=== PATIENT | female | born 1975 | race Caucasian/White ===

== ENCOUNTER 2018-02-25 01:17 | Outpatient (CLI) | payer OTHER, SELFPAY ==
--- NOTE | 2018-02-25 09:15 | DI.REPORT_ITS ---
SYMPTOM/DIAGNOSIS: SCREENING, Z12.31 BILATERAL SCREENING MAMMOGRAM: Mammograms were interpreted according to the usual protocol including computer analysis with CAD system, tomosynthesis and C view imaging. This is a baseline examination. The breasts are composed of heterogeneously dense fibroglandular tissue, breast density Category C. No suspicious masses or suspicious microcalcifications are seen. IMPRESSION: Category 1-C, negative mammogram. Yearly screening mammography is recommended. [facility] ASSESSMENT OF FINDINGS: Negative. Category 1. Patient will receive a letter notifying them of these results. Bi-RADS category C. The breasts are heterogeneously dense, which may obscure small masses.
== END 2018-02-25 01:18 ==
PROVIDERS: PCP Nurse Practitioner Family; Visit Provider Obstetrics & Gynecology
DX: Z12.31 Encounter for screening mammogram for malignant neoplasm of breast (principal)
CPT/HCPCS: 77063; 77067

== ENCOUNTER 2018-02-25 08:15 | Outpatient (CLI) | payer OTHER, SELFPAY ==
[2018-02-25 09:55] LABS: Anion Gap 11.9 mmol/L (3-11); BUN 13 mg/dL (7-18); CO2 28.1 mmol/L (21.0-32.0); CREATININE 0.85 mg/dL (0.55-1.02); Calcium 8.6 mg/dL (8.5-10.1); Chloride 100 mmol/L (98-107); Cholesterol 229 mg/dL (50-200); Glucose 95 mg/dL (70-100); HDL Cholesterol 57 mg/dL (40-60); LDL CHOLESTEROL 140 mg/dL (<100); Potassium 3.8 mmol/L (3.5-5.1); Sodium 140 mmol/L (136-145); Triglyceride 172 mg/dL (30-150)
== END 2018-02-25 08:16 ==
PROVIDERS: PCP Nurse Practitioner Family; Visit Provider Nurse Practitioner Family
DX: E78.5 Hyperlipidemia, unspecified (principal); I10 Essential (primary) hypertension; Z13.1 Encounter for screening for diabetes mellitus
CPT/HCPCS: 36415; 80048; 80061; 83721

== ENCOUNTER 2019-02-14 15:18 | Outpatient (REF) | payer OTHER, SELFPAY ==
--- NOTE | 2019-02-14 14:40 | PAPFT_PTH ---
PATIENT: Anabelle Hughes LOC: [facility] U#:[id number] AGE/SX: 43/F ROOM: RE02/14/[address]: Mei White MD : [id number] BED: DIS: 02/14/2019 SPEC #: [id number] RECD: 02/14/19 17:36 STATUS: JANES RESantosh #: [id number] ROXANNA: 02/14/19 14:[address]: Mei White DEPT: [facility] Cytology RECD BY: Sharlene Boggs ENTERED: 02/14/19 17:36 SP TYPE: PAPFT OTHR DR: Estelle Stovall APRN Tissues: 1 - CX/ENDOCX FOR PAP SMEARS Procedures: PAP THIN PREP/[facility] Screening HPV DNA PROBE Comments: [id number]
== END 2019-02-14 15:38 ==
LOC: LBN 15:18
PROVIDERS: PCP Nurse Practitioner Family; Visit Provider Obstetrics & Gynecology
DX: Z12.4 Encounter for screening for malignant neoplasm of cervix (principal); Z11.51 Encounter for screening for human papillomavirus (HPV)
CPT/HCPCS: 88142; 87624

== ENCOUNTER 2019-03-24 07:02 | Outpatient (CLI) | payer OTHER, SELFPAY ==
[2019-03-24 08:09] LABS: Anion Gap 8.3 mmol/L (3-11); BUN 12 mg/dL (7-18); CO2 28.7 mmol/L (21.0-32.0); CREATININE 0.78 mg/dL (0.55-1.02); Calculated LDL 98 mg/dL; Chloride 101 mmol/L (98-107); Cholesterol 186 mg/dL (50-200); Glucose 96 mg/dL (70-100); HDL Cholesterol 54 mg/dL (40-60); Potassium 3.7 mmol/L (3.5-5.1); Sodium 138 mmol/L (136-145); Triglyceride 171 mg/dL (30-150)
== END 2019-03-24 07:22 ==
PROVIDERS: PCP Nurse Practitioner Family; Visit Provider Nurse Practitioner Family
DX: I10 Essential (primary) hypertension (principal); E78.5 Hyperlipidemia, unspecified
CPT/HCPCS: 36415; 80048; 80061

== ENCOUNTER 2019-09-01 15:30 | Outpatient (CLI) | payer OTHER, SELFPAY ==
[2019-09-01 16:04] LABS: HCT 37.5 % (36.0-46.0); HGB 12.9 g/dL (12.0-15.5); Mean Corp. HGB Concentration 34.4 g/dL (32.0-36.0); Mean Corpuscular Hemoglobin 33.7 pg (27.0-33.0); Mean Corpuscular Volume 97.9 fL (80-95); Mean Platelet Volume 8.9 fL (8.0-11.0); Platelet Count 372 x1000/uL (130-400); RBC 3.83 m/cumm (4.00-5.20); RBC Distribution Width 11.7 % (11.7-14.6)
[2019-09-01 16:53] LABS: ALT 26 U/L (14-59); AST 20 U/L (15-37); Alkaline Phosphatase 64 U/L (46-116); Anion Gap 10.2 mmol/L (3-11); BUN 16 mg/dL (7-18); Bilirubin, Total 0.4 mg/dL (0.2-1.0); CO2 28.8 mmol/L (21.0-32.0); CREATININE 0.88 mg/dL (0.55-1.02); Calcium 8.6 mg/dL (8.5-10.1); Chloride 101 mmol/L (98-107); Glucose 86 mg/dL (74-106); Potassium 3.5 mmol/L (3.5-5.1); Sodium 140 mmol/L (136-145); Total Protein 7.4 g/dL (6.4-8.2)
== END 2019-09-01 15:50 ==
PROVIDERS: PCP Nurse Practitioner Family; Visit Provider Nurse Practitioner Adult Health
DX: D64.9 Anemia, unspecified (principal); R42 Dizziness and giddiness
CPT/HCPCS: 36415; 80053; 85027

== ENCOUNTER 2020-02-24 01:30 | Outpatient (CLI) | payer BC, SELFPAY ==
--- NOTE | 2020-02-24 08:15 | DI.CT_ITS ---
EXAM: CT ABDOMEN PELVIS W CLINICAL HISTORY: r/o diverticulitis,abd pain,bloating,r10.9,r14.0 TECHNIQUE: Imaging Protocol: Axial computed tomography images with coronal and sagittal reformatted images were created and reviewed CONTRAST MATERIAL: Intravenous: Omnipaque 350 Contrast volume:100 mL Oral: Yes COMPARISON: No exams were available for comparison FINDINGS: ABDOMEN: Lung Bases: Normal where visualized. Liver: Normal density. No measurable mass. Portal, Superior Mesenteric, and Splenic Veins: Unremarkable. Gallbladder and Biliary Tract: No radiodense calculus or dilation. Pancreas: Normal density, no abnormal calcifications or inflammatory process. Spleen: Normal. Adrenals: No masses seen. Kidneys: Normal size, contour and axis. No radiodense stones or obstructive uropathy. No masses seen. Abdominal Aorta: Abdominal portion non-dilated. Bowel: No obstruction or bowel wall thickening. Appendix is unremarkable. Small hiatal hernia. Peritoneal Cavity: No ascites, collection or mesenteric inflammatory response. Lymph Nodes: Within normal limits. Bones: Degenerative changes. Soft Tissues: Small fat containing paraumbilical hernia. PELVIS: Bladder: Symmetric distention, no gross wall thickening. Reproductive Organs: Unremarkable as visualized. Lymph Nodes: Within normal limits. Bones: Degenerative changes. IMPRESSION: No acute abdominal or pelvic process. RADIATION DOSE DELIVERED: 898.36mGy.cm Total DLP DATA REPOSITORY: All CT scans at this facility are submitted to the National Radiology Data Registry (NRDR) Dose Index Registry (DIR) with the [employer] (ACR). RADIATION OPTIMIZATION: All CT scans at this facility use at least one of these dose optimization te chniques: automated exposure control; mA and/or kV adjustment per patient size (includes targeted exa ms where dose is matched to clinical indication); or iterative reconstruction.
[2020-02-24] MEDS: Omnipaque 350 MG/ML 100 ML BTL IJ (14:05)
== END 2020-02-24 01:50 ==
PROVIDERS: PCP Nurse Practitioner Adult Health; Visit Provider Student in an Organized Health Care Education/Training Program
DX: R10.9 Unspecified abdominal pain (principal); R14.0 Abdominal distension (gaseous)
CPT/HCPCS: 74177; J3490

== ENCOUNTER 2020-03-05 04:27 | Outpatient (CLI) | payer BC, SELFPAY ==
--- NOTE | 2020-03-05 07:00 | DI.US_ITS ---
EXAM: US ABDOMEN CLINICAL HISTORY: evaluate GB,ABD PAIN,BLOATING,R10.9,R14.O TECHNIQUE: Ultrasound abdomen performed using standard protocol. COMPARISON: No exams were available for comparison FINDINGS: LIVER: Mildly increased echogenicity, consistent with hepatic steatosis.. No focal liver lesions are seen.. GALLBLADDER: No evidence of cholelithiasis. No evidence of wall thickening. No pericholecystic fluid identified. CENTENO'S SIGN: Negative. BILIARY SYSTEM: No intrahepatic or extrahepatic biliary ductal dilation. KIDNEYS: Kidneys are symmetric in size. No evidence of renal calculi. No evidence of hydronephrosis. No renal mass or cyst identified. PANCREAS: Normal where visualized. SPLEEN: Not enlarged. ABDOMINAL AORTA AND IVC: Visualized portions normal caliber. ASCITES: None seen. IMPRESSION: Ycce-ol-[id number] hepatic steatosis. Normal appearing gallbladder. DATA REPOSITORY:
== END 2020-03-05 04:47 ==
PROVIDERS: PCP Nurse Practitioner Adult Health; Visit Provider Student in an Organized Health Care Education/Training Program
DX: K76.0 Fatty (change of) liver, not elsewhere classified (principal); R10.9 Unspecified abdominal pain; R14.0 Abdominal distension (gaseous)
CPT/HCPCS: 76700

== ENCOUNTER 2020-08-23 10:45 | Outpatient (CLI) | payer BC, SELFPAY ==
[2020-08-24 15:50] LABS: COVID-19 RT-PCR UVMMC Result Negative (Negative)
== END 2020-08-23 10:46 | disposition home or self-care (01) ==
LOC: LBO 10:45
PROVIDERS: PCP Nurse Practitioner Adult Health; Visit Provider Nurse Practitioner Adult Health
DX: Z20.822 Contact with and (suspected) exposure to COVID-19 (principal)
CPT/HCPCS: U0003

== ENCOUNTER 2020-08-26 18:43 | Outpatient (REF) | payer BC, SELFPAY ==
[2020-08-28 17:06] LABS: COVID-19 RT-PCR UVMMC Result Negative (Negative)
== END 2020-08-26 18:44 | disposition home or self-care (01) ==
LOC: LBN 18:43
PROVIDERS: PCP Nurse Practitioner Adult Health; Visit Provider Family Medicine
DX: Z20.822 Contact with and (suspected) exposure to COVID-19 (principal)
CPT/HCPCS: U0003

== ENCOUNTER 2020-08-30 02:05 | Outpatient (CLI) | payer BC, SELFPAY ==
[2020-08-30 14:50] LABS: HCT 36.7 % (36.0-46.0); HGB 12.8 g/dL (11.2-15.7); MCHC 34.9 % (32.0-36.0); MCV 97.3 fL (80-95); MPV 9.3 fL (8.0-11.0); Platelet Count 336 10^3/uL (130-400); RBC 3.77 10^6/uL (3.93-5.22); RDW 11.7 % (11.7-14.6); RDW-SD 41.9 fL; WBC 6.99 10^3/uL (4.4-10.8)
[2020-08-30 15:47] LABS: ALT 32 U/L (14-59); AST 20 U/L (15-37); Albumin 3.9 g/dL (3.4-5.0); Alkaline Phosphatase 88 U/L (46-116); Anion Gap 10.2 mmol/L (3-11); BUN 18 mg/dL (7-18); Bilirubin, Total 0.3 mg/dL (0.2-1.0); CO2 27.8 mmol/L (21.0-32.0); CREATININE 0.9 mg/dL (0.55-1.02); Calcium 9.7 mg/dL (8.5-10.1); Chloride 103 mmol/L (98-107); Glucose 110 mg/dL (74-106); Potassium 3.6 mmol/L (3.5-5.1); Sodium 141 mmol/L (136-145); Total Protein 7.5 g/dL (6.4-8.2)
[2020-08-30 15:48] LABS: C-Reactive Protein 0.49 mg/dL (0.0-0.3); Cholesterol 219 mg/dL (<200); HDL Cholesterol 44 mg/dL (40-60); Triglyceride 401 mg/dL (<150)
[2020-08-30 16:41] LABS: LDL CHOLESTEROL 116 mg/dL (<100)
[2020-09-01 10:51] LABS: Lyme Ab w Rflx to Lyme Confirm Negative (Negative)
[2020-09-02 16:06] LABS: Anaplasma phagocytophilum Negative (Negative); B. miyamotoi PCR Negative (Negative); Babesia divergens/MO-1 Negative (Negative); Babesia duncani Negative (Negative); Babesia microti Negative (Negative); Ehrlichia chaffeensis Negative (Negative); Ehrlichia ewingii/canis Negative (Negative); Ehrlichia muris eauclairensis Negative (Negative)
== END 2020-08-30 02:06 | disposition home or self-care (01) ==
LOC: LBO 02:05
PROVIDERS: PCP Nurse Practitioner Adult Health; Visit Provider Family Medicine
DX: R50.9 Fever, unspecified (principal); J45.20 Mild intermittent asthma, uncomplicated; I10 Essential (primary) hypertension; F41.8 Other specified anxiety disorders; E78.5 Hyperlipidemia, unspecified
CPT/HCPCS: 36415; 80048; 80053; 80061; 83721; 85027; 87798; 86140; 86618

== ENCOUNTER 2020-10-08 01:56 | Outpatient (CLI) | payer BC, SELFPAY ==
[2020-10-08 09:20] LABS: Calculated LDL 111 mg/dL (<100); Cholesterol 200 mg/dL (<200); HDL Cholesterol 57 mg/dL (40-60); Triglyceride 161 mg/dL (<150)
[2020-10-08 09:37] LABS: C-Reactive Protein 0.39 mg/dL (0.0-0.3)
== END 2020-10-08 01:57 | disposition home or self-care (01) ==
LOC: LBO 01:57
PROVIDERS: PCP Nurse Practitioner Adult Health; Visit Provider Nurse Practitioner Adult Health
DX: E78.5 Hyperlipidemia, unspecified (principal); R79.82 Elevated C-reactive protein (CRP)
CPT/HCPCS: 36415; 80061; 86140

== ENCOUNTER 2020-10-08 03:26 | Outpatient (CLI) | payer BC, SELFPAY ==
--- NOTE | 2020-10-08 06:45 | DI.MAMMO_ITS ---
EXAM: MAMMO SCREENING CLINICAL HISTORY: screening,Z12.39 TECHNIQUE: Mammograms were interpreted according to the usual protocol including computer analysis w [employer] CAD system, tomosynthesis and C-view imaging. COMPARISON: FINDINGS: The breasts are heterogeneously dense. There are multiple areas of asymmetric density seen bilateral ly. No dominant mass or clumped microcalcification seen. Comparison with prior mammogram of February 2018 shows question of increased prominence of areas of asymmetric density seen in both right and lef t breast on CC and MLO views. Additional mammographic views are requested did of both breasts with b reast ultrasound also recommended bilaterally. In the right breast, cc spot compression view of an area of retroareolar increased radiodensity seen about 2 cm behind the nipple just lateral to the midline and MLO spot compression view of an area of asymmetric density about 3 cm from the nipple seen superiorly in the anterior to midportion of the br east are requested. In the left breast, a retroareolar radiodensity about 2 cm behind the nipple should be evaluated with CC spot compression view and an area of radiodensity about 4 cm from the nipple in the superior cent ral portion of the breast should be evaluated with MLO spot compression view. IMPRESSION: Additional mammographic views of both breasts and bilateral breast ultrasound recommended as describe d above. BI-RADS Category 0 - Assessment Incomplete: Need additional imaging evaluation Breast Density - Category C - Heterogeneously dense
== END 2020-10-08 03:46 ==
PROVIDERS: PCP Nurse Practitioner Adult Health; Visit Provider Nurse Practitioner Adult Health
DX: Z12.31 Encounter for screening mammogram for malignant neoplasm of breast (principal); R92.8 Other abnormal and inconclusive findings on diagnostic imaging of breast
CPT/HCPCS: 77063; 77067

== ENCOUNTER 2020-10-14 01:50 | Outpatient (CLI) | payer BC, SELFPAY ==
--- NOTE | 2020-10-14 | DI.US_ITS ---
EXAM: US BREAST RIGHT COMPLETE CLINICAL HISTORY: F/U MAMMO, INCREASED ASYMMETRIC DENSITY, BILAT RADIODENSITIES. TECHNIQUE: COMPLETE ULTRASOUND EXAMINATION OF RIGHT BREAST WAS PERFORMED INCLUDING ALL 4 QUADRANTS I N THE RETROAREOLAR REGION, AND THE RIGHT AXILLA.. COMPARISON: Prior mammograms were reviewed. today's diagnostic mammogram was reviewed. FINDINGS: There is no evidence of solid or significant cystic lesions in the right breast. Also no findings in the immediate retroareolar region. Right axilla is negative for significant adenopathy IMPRESSION: Negative right breast ultrasound. Please see separate left breast ultrasound report which exhibits findings which require three-month f ollow-up ultrasound. BI-RADS Category 3 - 3 month - Probably Benign Finding: Recommend follow-up mammography in 3 months Breast Density - Category C - Heterogeneously dense Breast density Category C or D implies that the patient has dense breast tissue. Dense breast tissue can make it harder to find cancer on a mammogram. Dense breast tissue is also associated with an incr eased risk of breast cancer. This information about the result of the mammogram report was provided to the patient to raise their awareness. Use this report when you speak with the patient about their risks for breast cancer, which includes their family history. At that time, you may recommend additional screening tests (Ultrasoun d or MRI) as these tests may add significant information. A negative radiographic report should not delay biopsy if a dominant or clinically suspicious mass is present. Up to ten percent of cancers are not identified on mammography. A negative report may reinforce clinical impression. Adenosis and dense breasts may obscure an underlying neoplasm. False positive reports average 6 to 10%. Patient will receive a letter notifying them of these results.
--- NOTE | 2020-10-14 | DI.US_ITS ---
EXAM: US BREAST LT COMPLETE CLINICAL HISTORY: F/U MAMMO, INCREASED ASYMMETRIC DENSITY, RADIODENSITIES. TECHNIQUE: Complete ultrasound of the bilateral breast was performed incluing all 4 quadrants, the r etroareolar region, and the ipsilateral axilla. COMPARISON: Prior mammograms were reviewed. Today's diagnostic study was reviewed. FINDINGS: No significant ultrasound findings in the right breast. In the left breast at the 12 o'clock position there are 2 findings. For sleep, there is a wider than taller 1.4 by 0.6 millimeter oval nodule exhibiting increased through transmission and well-defined borders. Difficult to determine if this is a hemorrhagic microcyst or asymmetric lobule within dense tissue. Adjacent to this is a 2nd slightly smaller but similar appearing finding measuring 7 by 5 millimeters . Third finding is at the 5 o'clock position where there is small conglomeration microcysts measuring 6 x 4 millimeters No other findings in the 4 quadrants nor in the immediate retroareolar region. Ipsilateral right axi lla reveals benign-appearing lymph nodes. IMPRESSION: Findings at 12 o'clock position described above which require repeat ultrasound examination in 3 andreas hs time to ensure stability. These are in subjacent were dense fibroglandular tissue on mammography, also not seen on spot compression 3D views. BI-RADS Category 3 - 3 month - Probably Benign Finding: Recommend follow-up ULTRASOUND in 3 months Breast Density - Category C - Heterogeneously dense Breast density Category C or D implies that the patient has dense breast tissue. Dense breast tissue can make it harder to find cancer on a mammogram. Dense breast tissue is also associated with an incr eased risk of breast cancer. This information about the result of the mammogram report was provided to the patient to raise their awareness. Use this report when you speak with the patient about their risks for breast cancer, which includes their family history. At that time, you may recommend additional screening tests (Ultrasoun d or MRI) as these tests may add significant information. A negative radiographic report should not delay biopsy if a dominant or clinically suspicious mass is present. Up to ten percent of cancers are not identified on mammography. A negative report may reinforce clinical impression. Adenosis and dense breasts may obscure an underlying neoplasm. False positive reports average 6 to 10%. Patient will receive a letter notifying them of these results.
--- NOTE | 2020-10-14 13:36 | DI.MAMMO_ITS ---
EXAM: MG MAMMO SCREEN CALL BACK BI MG MAMMO SCREEN CALL BACK BI CLINICAL HISTORY: F/U MAMMO, BILAT INCREASED ASYMMETR,BILAT RADIODENSITY. TECHNIQUE: Bilateral spot mammographic images were obtained with 3D tomosynthesis and utilizing comp uter aided detection (CAD). COMPARISON: Prior mammograms were reviewed. This additional imaging was performed due to findings d escribed on the recent screening mammogram of 10/08/2020. FINDINGS: Additional spot compression 3D views of both breasts are less concerning for discernible nodules. However, please see separate breast ultrasound report performed today which reveal significant findin gs which require follow-up in 3 months. IMPRESSION: No radiographic evidence of malignancy Ultrasound findings in the left breast which require follow-up in 3 months time. Please see that [facility] breast ultrasound report. Category: BI-RADS 3-short term follow in 3 months (ultrasound left breast) Breast Density - Category C - Heterogeneously dense Breast density Category C or D implies that the patient has dense breast tissue. Dense breast tissue can make it harder to find cancer on a mammogram. Dense breast tissue is also associated with an incr eased risk of breast cancer. This information about the result of the mammogram report was provided to the patient to raise their awareness. Use this report when you speak with the patient about their risks for breast cancer, which includes their family history. At that time, you may recommend additional screening tests (Ultrasoun d or MRI) as these tests may add significant information. A negative radiographic report should not delay biopsy if a dominant or clinically suspicious mass is present. Up to ten percent of cancers are not identified on mammography. A negative report may reinforce clinical impression. Adenosis and dense breasts may obscure an underlying neoplasm. False positive reports average 6 to 10%. Patient will receive a letter notifying them of these results.
== END 2020-10-14 02:10 ==
PROVIDERS: PCP Nurse Practitioner Adult Health; Visit Provider Nurse Practitioner Adult Health
DX: R92.8 Other abnormal and inconclusive findings on diagnostic imaging of breast (principal)
CPT/HCPCS: 76642; 77063; 77067

== ENCOUNTER 2020-11-16 15:06 | Outpatient (CLI) | payer BC, SELFPAY ==
--- NOTE | 2020-11-16 14:15 | DI.RAD_ITS ---
Exam(s) XR KNEE RT 2V AP,LAT EXAM: XR KNEE RT 2V AP,LAT CLINICAL HISTORY: f/u. TECHNIQUE: 2D digital imaging was performed. COMPARISON: CR CHEST 2 VIEWS PA,LAT from 11/03/2016 FINDINGS: BONES: No acute fracture is present. No bony destructive lesion is seen. JOINTS: The knee is normally aligned. No joint effusion is seen. SOFT TISSUE: Normal. IMPRESSION: Unremarkable radiographs of the right knee. DATA REPOSITORY: RADIATION DOSE DELIVERED:
--- NOTE | 2020-11-16 14:30 | DI.RAD_ITS ---
Exam(s) XR KNEES MERCHANT ONLY EXAM: XR KNEES MERCHANT ONLY INDICATION: right knee pain. COMPARISON: No exams were available for comparison TECHNIQUE: 2D digital imaging was performed. FINDINGS: There is symmetric and normal alignment of the patella on the Merchant views. The bones are normally mineralized. The soft tissues are unremarkable. IMPRESSION: DATA REPOSITORY: RADIATION DOSE DELIVERED:
== END 2020-11-16 15:07 | disposition home or self-care (01) ==
LOC: DIORS 15:06
PROVIDERS: PCP Nurse Practitioner Adult Health; Referring Provider Nurse Practitioner Adult Health; Visit Provider Student in an Organized Health Care Education/Training Program
DX: M25.561 Pain in right knee (principal); G89.29 Other chronic pain
CPT/HCPCS: 73565; 73560

== ENCOUNTER 2021-02-22 02:36 | Outpatient (CLI) | payer BC, SELFPAY ==
[2021-02-23 15:04] LABS: COVID-19 RT-PCR UVMMC Result Negative (Negative)
== END 2021-02-22 02:37 | disposition home or self-care (01) ==
PROVIDERS: PCP Nurse Practitioner Adult Health; Visit Provider Nurse Practitioner Adult Health
DX: J02.9 Acute pharyngitis, unspecified (principal); Z20.822 Contact with and (suspected) exposure to COVID-19
CPT/HCPCS: U0003; 87081

== ENCOUNTER 2022-07-27 10:56 | Outpatient (CLI) | payer BC, SELFPAY ==
--- NOTE | 2022-07-27 10:30 | DI.RAD_ITS ---
Exam(s) XR HUMERUS RT XR SHOULDER RT COMPLETE 2+V EXAM: XR HUMERUS RT and XR shoulder RT complete CLINICAL HISTORY: s/p fall,acute pain rt shoulder,? fx,m25.511,w19.xxxa. TECHNIQUE: 2D digital imaging was performed of the right humerus. Seven images were obtained. AP, lateral, Grashey and Y views were obtained. COMPARISON: CR XR SHOULDER RT COMPLETE 2+V from 07/27/2022 FINDINGS: BONES: No acute fracture is present. No bony destructive lesion is seen. Visualized portion of elbow and shoulder joints are unremarkable. SOFT TISSUE: Normal. IMPRESSION: Unremarkable radiographs of the right humerus and right shoulder. DATA REPOSITORY: RADIATION DOSE DELIVERED:
== END 2022-07-27 11:16 ==
LOC: DI 10:57
PROVIDERS: PCP Nurse Practitioner Adult Health; Visit Provider Nurse Practitioner Adult Health
DX: G89.11 Acute pain due to trauma (principal); M25.511 Pain in right shoulder; M89.8X2 Other specified disorders of bone, upper arm; W19.XXXA Unspecified fall, initial encounter
CPT/HCPCS: 73030; 73060

== ENCOUNTER 2022-08-30 17:00 | Outpatient (REF) | payer BC, SELFPAY | END 2022-08-30 17:01 | disposition home or self-care (01) | LOC: LBN 17:00 | PROVIDERS: PCP Nurse Practitioner Adult Health; Visit Provider Nurse Practitioner Adult Health | DX: J02.9 Acute pharyngitis, unspecified (principal) | CPT/HCPCS: 87077; 87070 ==

== ENCOUNTER 2022-09-01 00:36 | Outpatient (CLI) | payer BC, SELFPAY ==
--- NOTE | 2022-09-01 07:15 | DI.MRI_ITS ---
Exam(s) MR UPPER JOINT RT WO EXAM: MR UPPER JOINT RT WO CLINICAL HISTORY: Full thickness rotator cuff tear,TRAUMATIC, S46.011A. TECHNIQUE: Multiplanar multisequence MRI was performed. COMPARISON: Plain films August 07 FINDINGS: BONES: There is no fracture or contusion pattern. JOINTS:The acromioclavicular joint is normal. The glenohumeral joint shows a large amount of fluid. TENDONS: Supraspinatus: Full-thickness tear with retraction approximately 2.5 cm. Infraspinatus: Torn and retracted to the same level. Subscapularis: Unremarkable. Teres Minor: Unremarkable. Biceps and [place]: Unremarkable. MUSCLES: Unremarkable. GLENOID LABRUM: Unremarkable on this noncontrast examination. SOFT TISSUES: Unremarkable. OTHER: Subacromial and subdeltoid bursae show large amount of fluid. . IMPRESSION: Full-thickness tear with retraction of the supraspinatus and infraspinatus tendons. DATA REPOSITORY:
== END 2022-09-01 00:56 ==
LOC: DI 00:36
PROVIDERS: PCP Nurse Practitioner Adult Health; Visit Provider Student in an Organized Health Care Education/Training Program
DX: M75.101 Unspecified rotator cuff tear or rupture of right shoulder, not specified as traumatic (principal)
CPT/HCPCS: 73221

== ENCOUNTER 2022-09-28 05:47 | Day surgery (SDC) | payer BC, SELFPAY ==
--- NOTE | 2022-09-27 15:24 | W.ANESPRE ---
General Info Date of Service Date Performed: 09/28/22 Height: 5 ft 3 in Weight: 76.657 kg Body Mass Index (BMI): 29.9 Surgical Procedure: Operation Date: 09/28/22 07:40 Proposed Procedure Side Surgeon p Shoulder Massive Rotator Cuff Repair Arthroscopic w/Extensive Debridement, Possible Biceps Tenodesis, Subacromial Decompression Right Joel Ruiz MD Meds Allergies and Home Medications Allergies Allergy/AdvReac Type Severity Reaction Status Date / Time amoxicillin trihydrate Allergy Intermediate Rash Verified 09/28/22 06:11 [From Augmentin] potassium clavulanate Allergy Intermediate Rash Verified 09/28/22 06:11 [From Augmentin] Sulfa (Sulfonamide AdvReac Severe vomiting Verified 09/28/22 06:11 Antibiotics) sulfamethoxazole AdvReac Intermediate N/V Verified 09/28/22 06:11 [From Bactrim] trimethoprim [From Bactrim] AdvReac Intermediate N/V Verified 09/28/22 06:11 zolpidem tartrate AdvReac Intermediate Hoyt Verified 09/28/22 06:11 [From Ambien] sedated meloxicam AdvReac Dizziness/L Verified 09/28/22 06:11 ightheade methylprednisolone AdvReac Dizziness/L Verified 09/28/22 06:11 ightheade Home Medication Medication Instructions Recorded Centrum Tablet 1 ea PO PM 11/04/12 inhalational spacing device (Space ##1 09/28/15 Chamber Plus) sertraline 50 mg tablet 25 mg PO DAILY #45 tab-caps 08/16/21 albuterol sulfate 90 mcg/actuation 1 - 2 puff inhalation .Q4-6H PRN 09/28/21 aerosol inhaler (ProAir HFA) shortness of breath or wheezing #1 unit amlodipine 5 mg tablet 5 mg PO DAILY #90 tab-caps 09/28/21 cetirizine 10 mg capsule (Zyrtec) 10 mg PO DAILY PRN allergy 09/28/21 symptoms #60 caps fluticasone propionate 44 2 puff inhalation BID #10.6 grams 09/28/21 mcg/actuation HFA aerosol inhaler montelukast 10 mg tablet 10 mg PO HS #90 tabs 09/28/21 (Singulair) omeprazole 20 mg capsule,delayed 20 mg PO DAILY #30 caps 07/27/22 release aspirin 81 mg tablet,delayed 81 mg PO DAILY prevent blood clot 09/28/22 release 7 days #7 tabs naproxen 250 mg tablet 250 - 500 mg PO BID PRN #40 tabs 09/28/22 oxycodone 5 mg tablet 5 - 10 mg PO Q4H PRN moderate to 09/28/22 severe pain #18 tabs Current Visit Medications: Current Medications Generic Name Dose Route Start Last Admin Trade Name Freq PRN Reason Stop Dose Admin Ringer's Solution 1,000 mls @ 30 mls/hr 09/28/22 06:00 IV 10/27/22 23:59 INFUSION TITA Cefazolin Sodium/Dextrose 2 gm in 50 mls @ 100 mls/hr 09/28/22 06:00 Ancef Duplex IVPB 10/27/22 23:59 PREOP TITA IV Miscellaneous Supplies 1 each 09/28/22 06:00 Iv Access IV 10/27/22 23:59 DIRECTED TITA Sodium Chloride 0 ml 09/28/22 06:00 Normal Saline Flush 10 Ml Syr IV 10/27/22 23:59 PRN PRN Sodium Chloride 0 ml 09/28/22 06:00 Normal Saline 10 Ml Vial IJ 10/27/22 23:59 DIRECTED PRN Sterile Water 0 ml 09/28/22 06:00 Water,Injection,Sterile 10 Ml Vial IJ 10/27/22 23:59 DIRECTED PRN PFSH Active Problems Active Problems: Problem Status Onset Code Traumatic tear of right rotator cuff 07/26/22 S46.011A Category 3 mammography result with short follow-up interval suggested for probably benign finding R92.8 Asthma 10/31/12 J45.909 Anxiety and depression F41.9, F32.9 Hyperlipidemia, unspecified 02/15/17 E78.5 Essential hypertension 03/07/13 I10 Medical History Medical History Abnormal ultrasound of breast L--3m F/U January 2021 Anemia (09/23/13) -related Chondromalacia of right patella Elevated C-reactive protein (CRP) Excessive and frequent menstruation (11/10/13) s/p endometrial ablation, which resolved this issue 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 Chavarria Repair of inguinal hernia 1978 [place] tooth extraction, 2003 Tobacco Smoking/Tobacco Use Status: Never Alcohol Alcohol Intake: current Alcohol intake frequency: 0-2 drinks per day Alcohol type: wine Substance Use Substance use: Never Substance use type: does not use Prental History History 6 Para Hx # Term Pregnancies 5 Multiple births Hx # Pregnancies Ectopic pregnancies AB induced Hx Number of Living Children AB spontaneous Vital Signs and Lab Results Vital Signs Most Recent Vital Signs in EMR: Temp Pulse Resp BP Pulse Ox 36.5 C 85 16 138/95 H 98 09/28/22 06:14 09/28/22 06:14 09/28/22 06:14 09/28/22 06:14 09/28/22 06:14 Lab Results Blood Type / Crossmatch: No Data to Display Complete Blood Count: No Data to Display Complete Metabolic Panel: No Data to Display Liver Function Panel: No Data to Display Coagulation Panel: No Data to Display Cardiac Panel: No Data to Display Arterial Blood Gas: No Data to Display Venous Blood Gas: No Data to Display Pancreas Panel: No Data to Display Thyroid Panel: No Data to Display Infectious Disease: No Data to Display Blood Cultures: No Data to Display Toxicology Panel: No Data to Display Panel: No Data to Display Anesthesia Assessment and Plan Anesthesia History Personal History: No History of Anesthesia Complications Family History: No Family History of Anesthesia Complications Exercise Tolerance Exercise Tolerance: Metabolic Equivalents>4 Cardiac & Pulmonary Exam Cardiac Exam: Normal S1/S2 Heart Sounds Pulmonary Exam: Clear Bilateral Breath Sounds Implantable Cardiac Device Does patient have a Pacemaker or an ICD?: No Airway Exam Known Difficult Airway: No Mallampati Class: 2 Mouth Opening: Narrow (< 3cm) Thyromental Distance: Less than 3 cm Neck Range of Motion: Limited ROM Neck Circumference: Normal Teeth Condition: Normal Dentition ASA Classification ASA Score: ASA 2 Emergency Case?: No NPO Status NPO Status: NPO Clears >2 hours, Solids >8 hours Status Status: Not Relevant due to Medical History Anesthesia Plan Resuscitation Status: Full Code Anesthesia Technique: General Anesthesia Airway Planned: Endotracheal Tube Pain Management: Surgeon and patient request nerve block Monitors Used: Standard Monitors Preoperative Comments:: 46 yo female for shoulder scope. Sig PMHX: HTN (amlodipine, was recently taken off her hctz) asthma (albuterol, singular, fluticasone. will take puffs of her home albuterol before heading back), anxiety/depression/panic attacks (sertraline), GERD (omeprazole, well controlled), never smoker, occ EtOH. Previous Anes: - [place] ablation, prop, natural airway, no issues. Discussed risks, benefits, and alternatives of GAETT with brachial plexus block. Discussed the risk of permanent nerve injury. She understands the risks and would liek to proceed.
[2022-09-28] VITALS (11 sets, daily range): BP systolic 115–155; BP diastolic 79–102; PULSE 70–85; RESP 16–23; TEMP 36.1–37; O2SAT 95–99; BMI 29.9
--- NOTE | 2022-09-28 06:51 | W.PM.DSUDISC ---
Date of service: 09/28/22 Time of Service: 13:00 Discharge Plan Discharge Details Attending Provider: Joel Ruiz Primary Care Provider: Chanelle Del Rosario Home Meds and New Rx's Prescriptions: New aspirin 81 mg tablet,delayed release (DR/EC) 81 mg PO DAILY 7 Days Qty: 7 0RF naproxen 250 mg tablet 250 - 500 mg PO BID PRNQty: 40 0RF Rx Instructions: take with a meal oxycodone 5 mg tablet 5 - 10 mg PO Q4H MDD 30 mg PRN (Reason: moderate to severe pain) Qty: 18 0RF Continued omeprazole 20 mg capsule,delayed release(DR/EC) 20 mg PO DAILY Qty: 30 0RF Rx Instructions: While taking NSAID for arm injury--take on empty stomach, 30-min prior to meds/food in AM montelukast [Singulair] 10 mg tablet 10 mg PO HS Qty: 90 3RF Zyrtec 10 mg capsule 10 mg PO DAILY PRN (Reason: allergy symptoms) Qty: 60 3RF amlodipine 5 mg tablet 5 mg PO DAILY Qty: 90 3RF albuterol sulfate [ProAir HFA] 90 mcg/actuation HFA aerosol inhaler 1 - 2 puff Inhalation .Q4-6H PRN (Reason: shortness of breath or wheezing) Qty: 1 3RF Rx Instructions: Dispense 1 inhaler fluticasone propionate 44 mcg/actuation HFA aerosol inhaler 2 puff inhalation BID Qty: 10.6 1RF CENTRUM TABLET 1 EACH tablet 1 ea PO PM (DME) Space Chamber Plus 1 EACH spacer 1 ea Miscellaneous TID Qty: 1 Rx Instructions: use with inhaler sertraline 50 mg tablet 25 mg PO DAILY Qty: 45 3RF Rx Instructions: Take 1/2 pill daily Discontinued naproxen 500 mg tablet 500 mg PO BID PRN (Reason: pain) Qty: 40 0RF Rx Instructions: Start by taking with food 2x/d x4 days, then PRN pain. ibuprofen 200 MG tablet 400 mg PO PRN Discharge Instructions Additional Instructions: Surgery: Right shoulder arthroscopy with large rotator cuff repair (SS & IS), extensive debridement, and subacromial decompression. No biceps tenodesis. Activity: For 6 weeks, you should keep your arm at your side in a neutral position at all times except for physical therapy. Do not try to lift or raise your arm using your own muscles. You should use the sling whenever you are out of the house. You may have to adjust the abduction pillow or remove it for comfort. At home it is best to remove the sling and rest the arm on a pillow at your side or support the operative side with your other hand. You may allow the arm to dangle at your side. A physical therapy prescription will be sent electronically to begin in about 3 weeks. STANDARD protocol. Prescriptions: Aspirin 81 mg take 1 daily to prevent a blood clot for 7 days Naproxen 250 mg take 1-2 every 12 hours with a meal as needed for moderate pain Oxycodone 5 mg take 1-2 every 4-6 hours as needed for severe pain You may use [id number] Tylenol (acetaminophen) as needed for mild pain. These pain medications may be taken all at once or in different combinations as needed. Also, recommend Colace (docusate) as a stool softener as surgery and pain medicine cause constipation. You may try smoh-[id number]-[id number] diphenhydramine (Benadryl) 25-50 mg nightly as a sleep aid Dressings: Remove shoulder bandage after 3 days. Leave the sticky Steri-Strips in place until they fall off or remove them after you shower. Cover the incisions with Band-Aids or leave them open to air. You may shower after 5 days. Follow-up: 10-[address] Ruiz You may take off the leg compression stockings this evening at home. You may also leave them on a few days longer if you have a history of leg swelling or edema. Let us know right away if you develop any redness, drainage, fevers, chest pain, or trouble breathing. Do not drink alcohol or drive for at least 24 hours after anesthesia. Please call the office during business hours with any questions or concerns. DS: Diagnosis Discharge Diagnosis (1) Traumatic tear of right rotator cuff: Status: Acute
[2022-09-28] MEDS: Lactated Ringers 1,000 ML 30 ML IV (06:52)
--- NOTE | 2022-09-28 07:05 | W.PM.OP ---
Date of service: 09/28/22 Time of Service: 08:00 Operative Note Operative Note DATE OF PROCEDURE: 09/28/22 PRE-OP DIAGNOSIS: Right: 1. Rotator cuff tear 2. Bursitis POST-OP DIAGNOSIS: same PROCEDURE: Right: 1. Rotator cuff repair, CPT# 29068. This involved repair of the supraspinatus and infraspinatus using anchors and sutures to reattach the rotator cuff back to the footprint of the greater tuberosity. 2. Extensive debridement, CPT# 68895. This involved using arthroscopic hand instruments, power instruments, and radiofrequency instruments to debride anterior labral fraying, rotator interval synovitis, partially release [facility] L and anterior capsule about subscapularis, and resect remnant supraspinatus on the anterior medial greater tuberosity, and removed residual soft tissue from the greater tuberosity rotator cuff footprint working the glenohumeral joint anteriorly superiorly, and posteriorly. 3. Subacromial decompression with partial acromioplasty, CPT# 62310. This involved using arthroscopic power instruments and a radiofrequency wand to complete a bursectomy and abrade the undersurface of the acromion to increase the acromiohumeral distance and provide bone marrow stimulation for healing. The assistant farm operations manager was medically required in order to help assist in techniques above, which require positioning the arm, holding the arthroscope, and manipulating multiple instruments and sutures at the same time. This cannot be done without the help of an experienced assistant farm operations manager. SURGEON: Joel Ruiz SENIOR TECHNICAL RECRUITER: Magaly Pires ANESTHESIA TYPE: General LMA/ETT and Primary Nerve Block Refer to Anesthesia Record ESTIMATED BLOOD LOSS: 10 PATHOLOGY: none sent COMPLICATIONS: None Patient was transported to: PACU Patient's condition: stable Implants: Arthrex: 4.75mm SwiveLocks x [ ] and [Unicortical Proximal Biceps Tenodesis Button] Indications: The patient was diagnosed with the above conditions and appropriately indicated for surgical intervention. Please see complete medical record for details. Findings: Exam under anesthesia: Full forward elevation and internal rotation with mild limitation to external rotation Glenohumeral joint: Significant anterior and interval synovitis with adhesions, capsulitis, and thickened [facility] L about the subscapularis. Subscapularis otherwise intact. Intact articular cartilage. Obvious full-thickness retracted superior and posterior superior rotator cuff void. Intact intra-articular biceps segment, no significant SLAP tear, and biceps tendon stable in bicipital groove with intact transverse humeral ligament. Subacromial space: Significant bursitis. Full-thickness large moderately retracted supraspinatus and infraspinatus rotator cuff tear. Tear started anteriorly just posterior to the biceps and ended moderately up posterior superior with the infraspinatus some intact tissue wrapping around the humeral head. Small supraspinatus remnant anterior medially. Remainder of greater tuberosity footprint with only fibrinous scar tissue. Procedure Description: In the operating room, general anesthesia was induced. Bilateral shoulders were examined. The patient was positioned in the beachchair position. All bony prominences were well-padded. Preoperative antibiotics were administered. The shoulder was prepped and draped in the usual sterile fashion. The correct patient, procedure, and side of the procedure were all verified prior to incision. Starting through the posterior portal a standard complete diagnostic arthroscopy was performed of the glenohumeral joint including inspection of the long head of the biceps, anterior and superior labrum, subscapularis tendon, supraspinatus and infraspinatus tendons, and axillary recess. The glenoid and humeral head cartilage as well as the posterior labrum were inspected from an anterior viewing portal. Significant findings and interventions noted above. The biceps tendon was preserved. Starting through the posterior portal, the arthroscope was directed into the subacromial space. A lateral 50 yard line lateral portal was created. A combination of power instruments and a radiofrequency ablator were used to debride bursitis anteriorly, posteriorly, and laterally as well as expose and smooth bone spurring on the undersurface of the acromion. The coracoacromial ligament was partially released. The bursectomy was completed viewing laterally and working from posteriorly and the rotator cuff was thoroughly inspected with findings noted above. Various hand and mechanical instruments were used to thoroughly prepare the greater tuberosity to optimize bone tendon healing. The rotator cuff was debrided lightly to a stable margin. Posteriorly there were delaminated layers that could be reincorporated together. Arm position and reduction were confirmed from various angles. Medial row anchors were placed anteriorly and posteriorly 4.75 mm swivel locks loaded with FiberTapes spanning the tear appropriately. Although this was a large tear, the patient's stature was diminutive so no additional third medial anchor was needed. These fiber tapes were then shuttled through the appropriate level of the rotator cuff medially incorporating all layers especially posteriorly. Care was taken to avoid incarcerating the biceps. Provisional reduction confirmed with a FiberTape from the anterior and posterior anchors out the rigid lateral Lilia cannula. Suture tape FiberLink was then placed anterior to the anterior medial row and posterior to it to incorporate more anterior and central tissue fixation. The FiberTape's in these links were all then secured to an anterior lateral row 4.75 mm SwiveLock anchor with appropriate reduction and tension. An additional link was then placed posterior to the posterior medial row anchor incorporating the most posterior margin of the infraspinatus tear and the remaining medial row tapes brought out lateral, arm position optimized and the posterior lateral anchor placed. There was excellent rotator cuff reduction, coverage of the greater tuberosity posterior centrally, and to a lesser extent anteriorly probably due to the remnant tissue had been resected, and the repair was stable through testing and range of motion. The shoulder was drained of arthroscopic fluid. All portal sites were copiously irrigated. These incisions were closed using 3-0 Monocryl in a buried fashion and then covered with Mastisol, Steri-Strips, Xeroform, dry gauze, and ABDs. The dressings were covered and secured with Medipore tape. The operative extremity was placed into a sling for immobilization. The patient awoke from anesthesia without complication and was transferred to the recovery room in a stable condition.
[2022-09-28] MEDS: ceFAZolin 2 GM/50 ML BAG IVPB (07:31)
--- NOTE | 2022-09-28 07:31 | W.ANESNERVE ---
Nerve Block Single Injection Procedure Date and Time Date Performed: 09/28/22 Procedure Start: 07:16 Location Where Procedure Performed Procedure Location: Day Surgery Unit Reason Performed: Postoperative Analgesia Requesting Provider: Joel Ruiz Timeout Performed Timeout Performed: Yes Monitoring Used ECG, Blood Pressure and SpO2 Sterility Sterility: Hand Hygiene, Surgical Mask, Sterile Gloves and Chlorhexidine Sedation Given During Procedure Sedation Given (Indicate Dose Given): Versed IV Dose:: 3 mg Patient Mental Status Patient Mental Status: Sedate with meaningful communication Nerve Block 1st Nerve Block: Laterality: Right Block Type: Interscalene Ultrasound Image Saved?: Yes Needle / Catheter Used: 100mm SonoPlex II Local Anesthetic Bolus (Indicate Dose Given): Injected in 3-5ml increments after negative blood aspiration, Bupivacaine 0.5% Dose:: 14 mL and Exparel Dose:: 9 mL Additives (Indicate Dose Given): None Ultrasound: Sterile probe cover and gel used Nerve Stimulator: Supplement to Ultrasound use and No twitch or parasthesia noted < 0.5 mA Paresthesia: None Procedure Tolerated: No Complications Procedure Outcome: Successful Performed By: Xander Fernandez
--- NOTE | 2022-09-28 10:30 | W.ANESPOSTOP ---
Postoperative Evaluation Date, Time and Location Date Performed: 09/28/22 Time Performed: 10:30 Patient Location: PACU Vital Signs Most Recent Imported Vital Signs: Most Recent Vital Signs Temp Pulse Resp BP Pulse Ox 36.7 C 71 17 129/84 96 09/28/22 10:20 09/28/22 10:20 09/28/22 10:20 09/28/22 10:20 09/28/22 10:20 Pain Score Most Recent Pain Score: Most Recent Pain Score Pain Level 0 09/28/22 07:25 Assessment Mental Status: Awake (Alert & Oriented to Patient Baseline) Airway and Respiratory Function: Patent airway with normal (patient baseline) respiratory exam Cardiovascular Function: Hemodynamically Stable Hydration Status: Adequately Hydrated Nausea & Vomiting: No Nausea or Vomiting Pain: Pain is tolerable per patient Peripheral Nerve Block: Regional nerve block not resolved at time of post operative discharge
[2022-09-28] MEDS: EPINEPHrine 30 MG/30 ML VIAL (11:33)
== END 2022-09-28 11:39 | disposition home or self-care (01) ==
PROVIDERS: PCP Nurse Practitioner Adult Health; Visit Provider Student in an Organized Health Care Education/Training Program
PROC: (CPT 29827; principal; 2022-09-28 07:30)
DX: S46.011A Strain of muscle(s) and tendon(s) of the rotator cuff of right shoulder, initial encounter (principal); X58.XXXA Exposure to other specified factors, initial encounter; M75.51 Bursitis of right shoulder; M65.811 Other synovitis and tenosynovitis, right shoulder
CPT/HCPCS: 29827; 29826; 29823; 76942; J0131; J0690; J1100; J1885; J2250; J2405; J2704; J3475

== ENCOUNTER 2023-01-24 02:38 | Outpatient (CLI) | payer BC, SELFPAY ==
[2023-01-24 09:41] LABS: Anion Gap 8.1 mmol/L (3-11); BUN 12 mg/dL (7-18); CO2 30.9 mmol/L (21.0-32.0); CREATININE 0.9 mg/dL (0.55-1.02); Calcium 9.2 mg/dL (8.5-10.1); Calculated LDL 150 mg/dL (<100); Chloride 104 mmol/L (98-107); Cholesterol 236 mg/dL (<200); Estimated GFR 79.35 (mL/min/1.73m2); Glucose 94 mg/dL (74-106); HDL Cholesterol 59 mg/dL (40-60); Potassium 3.8 mmol/L (3.5-5.1); Sodium 143 mmol/L (136-145); Triglyceride 136 mg/dL (<150)
== END 2023-01-24 02:39 | disposition home or self-care (01) ==
LOC: LBO 02:39
PROVIDERS: PCP Nurse Practitioner Adult Health; Visit Provider Nurse Practitioner Adult Health
DX: Z13.220 Encounter for screening for lipoid disorders (principal); Z13.1 Encounter for screening for diabetes mellitus
CPT/HCPCS: 36415; 80048; 80061

== ENCOUNTER 2023-11-09 06:11 | Day surgery (SDC) | payer BC, SELFPAY ==
--- NOTE | 2023-11-08 21:21 | PDOC.DSDIS_ITS ---
Date of service: 11/09/23 Time of Service: 08:15 Discharge Plan Disposition Patient Disposition: Home Condition: Good Discharge Details Reason For Visit: colon cancer screening Attending Provider: Yeimi Marie Primary Care Provider: Chanelle Del Rosario Home Meds and New Rx's Prescriptions: Continued Zyrtec 10 mg capsule 10 mg PO DAILY PRN (Reason: allergy symptoms) Qty: 60 3RF albuterol sulfate [ProAir HFA] 90 mcg/actuation HFA aerosol inhaler 1 - 2 puff Inhalation .Q4-6H PRN (Reason: shortness of breath or wheezing) Qty: 1 3RF Rx Instructions: Dispense 1 inhaler amlodipine 5 mg tablet 5 mg PO DAILY Qty: 90 3RF fluticasone propionate 44 mcg/actuation HFA aerosol inhaler 2 puff inhalation BID Qty: 10.6 1RF CENTRUM TABLET 1 EACH tablet 1 ea PO PM montelukast [Singulair] 10 mg tablet 10 mg PO HS Qty: 90 3RF Discontinued bisacodyl 5 mg tablet,delayed release (DR/EC) 5 mg PO ONCE Qty: 4 0RF Rx Instructions: Per Colonoscopy bowel prep instructions polyethylene glycol 3350 17 gram/dose powder 238 g PO ONCE Qty: 238 0RF Rx Instructions: For Colonoscopy bowel prep, as directed by office Discharge Instructions Additional Instructions: [facility] Colonoscopy Post- Op Instructions Instructions for Everyone who is given Anesthesia: For your safety, please do the following for the next twenty-four (24) hours: *Do Not operate a motor vehicle (car, truck, motorcycle, etc.) *Do Not drink alcoholic beverages or use any recreational drugs for the first 24 hours or while taking pain medications. The medications in your body may have a reaction that can be dangerous. *Do Not make any important decisions or sign any important papers. Findings: X 2 small polyps Follow up: My office will send you letter in 2 to 3 weeks time with the results of the pathology and when we want you to repeat the colonoscopy. 1. No lifting over 20 pounds or strenuous activity for the first 24 hours after your procedure. After 24 hours there are no restrictions on your activity but you may feel fatigued for a few days. 2. After you arrive home you may have a light meal and return to your normal diet as you can tolerate it without feeling sick to your stomach. 3. You may have a bloated, gaseous feeling in your belly (abdomen) after a colonoscopy. Passing gas and belching will help. Walking or lying down on your left side with your knees flexed may relieve the discomfort. Call the office at [phone] (Office) or [phone] (Hospital) right away if you notice any of the following: a.Vomiting of blood or ?coffee ground stools?. b.Rectal bleeding 1Tbsp, blood clots or continuous bleeding. c.Severe belly (abdominal) pain. d.A hard distended belly (abdomen) and an inability to pass gas. 4. Please don?t expect to have a normal BM (bowel movement) for 2-3 days after your procedure. 5. If there are questions regarding the findings of your procedure, please contact your doctor 6. If you are unable to contact your doctor with a problem, contact the hospital at [phone]. 7. Continue all your regular medications unless directed otherwise. I understand the above instructions and have no questions. Signature of Patient or Adult Escort Name of Responsible Adult Escort Signature of Nurse Date/Time Activity:: see above Diet:: see above Discharge Orders Discharge Orders: Discharge Order (Routine); Ordered 11/09/23 Ordered By: Yeimi Marie DS: Diagnosis Discharge Diagnosis (1) Essential hypertension: Status: Chronic (2) Hyperlipidemia, unspecified: Status: Chronic (3) Family history of colonic polyps: Status: Acute (4) Asthma: Status: Chronic (5) Screening for malignant neoplasm of colon performed: Status: Acute Asessment and Plan: The patient is seen and examined after their colonoscopy.? The patient has been able to pass gas.? They are not having abdominal pain.? They have been able to tolerate liquids and a snack.? They do not have any nausea or vomiting.? They are not having any chest pain or shortness of breath.??? They are not having any rectal bleeding. Their vital signs have been stable-see nursing notes. We discussed findings during their colonoscopy, and any biopsies that were done/polyps that were removed. The patient will be sent a letter with any biopsy results, and when to repeat the colonoscopy.-see discharge instructions. Patient was given explicit instructions to follow-up regarding colonoscopy-refer to discharge instructions.? We reviewed resumption of medications. Patient verbalized understanding and discharged in stable and satisfactory condition- See nursing notes.
--- NOTE | 2023-11-08 21:27 | W.COLOREPORT ---
Date of service: 11/09/23 Time of Service: 08:10 Colonoscopy Report Date of procedure: 11/09/23 Pre-op diagnosis general: crc screening Post-op diagnosis procedure note: other Surgeon: Yeimi Marie Anesthesia Type: General:No Airway Estimated blood loss (mL): 1 Pathology: other Complications: None Disposition: same day Prep: Miralax/Dulcolax Retraction Time: 13 Procedure Description: After informed consent was obtained the patient was taken to the procedure room and placed in a left decubitous position. Monitors were applied and a time out was done. The patients name, date of , procedure, allergies to medications and metal in their body was reviewed. The patient was then sedated. Once sedated and comfortable a rectal exam was done. External exam was normal. Internal exam revealed a normal sphincter tone and no palpable masses. The scope was then introduced and retrofelexed. no internal hemorrhoids were identified. The scope was then advanced to the cecum difficulty. The TI and appendiceal orifice were identified. The scope was then slowly retracted over 13 minutes back into the rectum. She had x 2.5 cm flat polyps in the cecum that are removed with a cold biopsy forcep. All specimens are retrieved and no bleeding is noted. There are no AVMs or diverticula visualized today. Mucosa is pink and healthy with a normal vascular pattern.. The scope was removed and the patient was woken up and taken back to Same day surgery in stable condition. The patient tolerated the procedure well and there were no immediate complications. Follow up: The patient should follow up in 7-10 years, path pending, unless they develop changes in bowel habits or other new gastrointestinal complaints. [facility] Bowel Prep [facility] Bowel Prep Right Colon: 3 Left Colon: 3 Transverse Colon: 3 Total Score: 9
[2023-11-09 06:24] VITALS: BP 144/84; PULSE 66; RESP 16; TEMP 36.6; O2SAT 97
[2023-11-09] MEDS: Lactated Ringers 1,000 ML 80 ML IV (06:48)
--- NOTE | 2023-11-09 07:05 | W.ANESPRE ---
General Info Date of Service Date Performed: 11/09/23 Height: 5 ft 6 in Weight: 69.5 kg Body Mass Index (BMI): 24.7 Surgical Procedure: Operation Date: 11/09/23 07:35 Proposed Procedure Side Surgeon eliot Marie, DO Meds Allergies and Home Medications Allergies Allergy/AdvReac Type Severity Reaction Status Date / Time amoxicillin trihydrate Allergy Intermediate Rash Verified 11/09/23 06:22 [From Augmentin] potassium clavulanate Allergy Intermediate Rash Verified 11/09/23 06:22 [From Augmentin] Sulfa (Sulfonamide AdvReac Severe vomiting Verified 11/09/23 06:22 Antibiotics) sulfamethoxazole AdvReac Intermediate N/V Verified 11/09/23 06:22 [From Bactrim] trimethoprim [From Bactrim] AdvReac Intermediate N/V Verified 11/09/23 06:22 zolpidem tartrate AdvReac Intermediate [place] Verified 11/09/23 06:22 [From Ambien] sedated meloxicam AdvReac Dizziness/L Verified 11/09/23 06:22 [place] methylprednisolone AdvReac Dizziness/L Verified 11/09/23 06:22 [place]ade Home Medication Medication Instructions Recorded Centrum Tablet 1 ea PO PM 11/04/12 cetirizine 10 mg capsule (Zyrtec) 10 mg PO DAILY PRN allergy 09/28/21 symptoms #60 caps montelukast 10 mg tablet 10 mg PO HS #90 tabs 01/01/23 (Singulair) albuterol sulfate 90 mcg/actuation 1 - 2 puff inhalation .Q4-6H PRN 07/04/23 aerosol inhaler (ProAir HFA) shortness of breath or wheezing #1 unit amlodipine 5 mg tablet 5 mg PO DAILY #90 tab-caps 07/04/23 fluticasone propionate 44 2 puff inhalation BID #10.6 grams 07/04/23 mcg/actuation HFA aerosol inhaler Current Visit Medications: Current Medications Generic Name Dose Route Start Last Admin Trade Name Freq PRN Reason Stop Dose Admin Hyoscyamine Sulfate 0.125 mg 11/09/23 09:18 Hyoscyamine 0.125 Mg Sl/Oral/Chew SL 12/09/23 09:17 DIRECTED PRN Ringer's Solution 1,000 mls @ 80 mls/hr 11/09/23 06:00 11/09/23 06:48 IV 11/09/23 23:59 80 mls/hr INFUSION TITA Administration IV Miscellaneous Supplies 1 each 11/09/23 06:00 Iv Access IV 11/09/23 23:59 DIRECTED TITA Ondansetron HCl 4 mg 11/09/23 09:18 Ondansetron 4 Mg/2 Ml Vial IVP 12/09/23 09:17 Q4H PRN PRN Nausea / Vomiting Sodium Chloride 0 ml 11/09/23 06:00 Normal Saline Flush 10 Ml Syr IV 11/09/23 23:59 PRN PRN Sodium Chloride 0 ml 11/09/23 06:00 Normal Saline 10 Ml Vial IJ 11/09/23 23:59 DIRECTED PRN Sterile Water 0 ml 11/09/23 06:00 Water,Injection,Sterile 10 Ml Vial IJ 11/09/23 23:59 DIRECTED PRN PFSH Active Problems Active Problems: Problem Status Onset Code Screening for malignant neoplasm of colon performed Z12.11 Family history of colonic polyps Z83.719 Category 3 mammography result with short follow-up interval suggested for probably benign finding R92.8 Asthma 10/31/12 J45.909 Hyperlipidemia, unspecified 02/15/17 E78.5 Essential hypertension 03/07/13 I10 Medical History Medical History Stiffness of right shoulder joint Traumatic tear of right rotator cuff (07/26/22) Anxiety and depression H/o Paxil & Xanax Laceration of ear, left, simple SARS-CoV-2 positive (~04/03/22) Patellar tendinitis of right knee Chondromalacia of right patella Abnormal ultrasound of breast L--3m F/U January 2021 Elevated C-reactive protein (CRP) Anemia (09/23/13) -related Excessive and frequent menstruation (11/10/13) s/p endometrial ablation, which resolved this issue Menorrhagia (11/16/15) s/p endometrial ablation which resolved this issue Panic anxiety syndrome (12/25/14) Hypochondriasis S/p loss of daughter Surgical History Surgical History S/P right rotator cuff repair (09/28/22) History of endometrial ablation (~04/17/17) Dr. Deon Koenig tooth extraction, 2004 Repair of inguinal hernia 1977 Tobacco Smoking/Tobacco Use Status: Never Passive smoking exposure: No Second hand exposure: No Alcohol Alcohol Intake: current Alcohol intake frequency: 0-2 drinks per day Alcohol type: wine Substance Use Substance use: Never Substance use type: does not use Prental History History 6 Para Hx # Term Pregnancies 5 Multiple births Hx # Pregnancies Ectopic pregnancies AB induced Hx Number of Living Children AB spontaneous Vital Signs and Lab Results Vital Signs Most Recent Vital Signs in EMR: Most Recent Vital Signs Temp Pulse Resp BP Pulse Ox 36.6 C 66 16 144/84 H 97 11/09/23 06:24 11/09/23 06:24 11/09/23 06:24 11/09/23 06:24 11/09/23 06:24 Lab Results Blood Type / Crossmatch: No Data to Display Complete Blood Count: No Data to Display Complete Metabolic Panel: No Data to Display Liver Function Panel: No Data to Display Coagulation Panel: No Data to Display Cardiac Panel: No Data to Display Arterial Blood Gas: No Data to Display Venous Blood Gas: No Data to Display Pancreas Panel: No Data to Display Thyroid Panel: No Data to Display Infectious Disease: No Data to Display Blood Cultures: No Data to Display Toxicology Panel: No Data to Display Panel: No Data to Display Anesthesia Assessment and Plan Anesthesia History Personal History: No History of Anesthesia Complications Family History: No Family History of Anesthesia Complications Exercise Tolerance Exercise Tolerance: Metabolic Equivalents>4 Pertinent Negatives Pertinent Negatives: No Symptoms of GERD, No Major Cardiovascular Symptoms or Complaints and No Major Pulmonary Symptoms or Complaints Cardiac & Pulmonary Exam Cardiac Exam: Normal S1/S2 Heart Sounds Pulmonary Exam: Clear Bilateral Breath Sounds Implantable Cardiac Device Does patient have a Pacemaker or an ICD?: No Airway Exam Known Difficult Airway: No Mallampati Class: 2 Mouth Opening: Narrow (< 3cm) Thyromental Distance: Less than 3 cm Neck Range of Motion: Limited ROM Neck Circumference: Normal Teeth Condition: Normal Dentition ASA Classification ASA Score: ASA 2 Emergency Case?: No NPO Status NPO Status: NPO Clears >2 hours, Solids >8 hours Status Status: Not Relevant due to Medical History Anesthesia Plan Resuscitation Status: Full Code Anesthesia Technique: General Anesthesia Airway Planned: Natural Airway Monitors Used: Standard Monitors
[2023-11-09 07:19] VITALS: BMI 24.7
--- NOTE | 2023-11-09 07:53 | BOWEL_PTH ---
PATIENT: Anabelle Hughes LOC: [facility] U#:[id number] AGE/SX: 48/F ROOM: RE11/09/[address]: Yeimi Marie : 1975 BED: DIS: 11/09/2023 SPEC #: [id number] RECD: 11/09/23 12:27 STATUS: JANES RE #: [id number] ROXANNA: 11/09/23 07:[address]: Yeimi Marie DEPT: Surgical Specimen RECD BY: Sharlene Boggs ENTERED: 11/09/23 12:27 SP TYPE: Bowel OTHR DR: Chanelle Del Rosario, SERGIO Tissues: 1 - BIOPSY BOWEL Procedures: GROSS AND MICRO LEVEL 4 Comments: [id number]
[2023-11-09 08:10] VITALS: BP 122/79; PULSE 58; RESP 16; TEMP 36.5; O2SAT 98
[2023-11-09 08:40] VITALS: BP 132/66; PULSE 60; RESP 16; TEMP 36.4; O2SAT 99
--- NOTE | 2023-11-09 09:16 | W.ANESPOSTOP ---
Postoperative Evaluation Date, Time and Location Date Performed: 11/09/23 Time Performed: 09:00 Patient Location: Day Surgery Unit Vital Signs Most Recent Imported Vital Signs: Most Recent Vital Signs Temp Pulse Resp BP Pulse Ox 36.4 C L 60 16 132/66 99 11/09/23 08:40 11/09/23 08:40 11/09/23 08:40 11/09/23 08:40 11/09/23 08:40 Pain Score Most Recent Pain Score: Most Recent Pain Score Pain Level 0 11/09/23 08:40 Assessment Mental Status: Awake (Alert & Oriented to Patient Baseline) Airway and Respiratory Function: Patent airway with normal (patient baseline) respiratory exam Cardiovascular Function: Hemodynamically Stable Hydration Status: Adequately Hydrated Nausea & Vomiting: No Nausea or Vomiting Pain: Pt. Denies Any Pain Peripheral Nerve Block: Patient did not receive a nerve block
== END 2023-11-09 09:05 | disposition home or self-care (01) ==
LOC: SUR 06:12
PROVIDERS: PCP Nurse Practitioner Adult Health; Visit Provider Surgery
PROC: 0DJD8ZZ Inspection of Lower Intestinal Tract, Via Natural or Artificial Opening Endoscopic (ICD-10-PCS; CPT 45378; principal; 2023-11-09 07:30)
DX: I10 Essential (primary) hypertension (principal); E78.5 Hyperlipidemia, unspecified; J45.20 Mild intermittent asthma, uncomplicated; Z12.11 Encounter for screening for malignant neoplasm of colon; D12.0 Benign neoplasm of cecum
CPT/HCPCS: 45380; 88305; J2001; J2704

== ENCOUNTER 2024-01-02 04:43 | Outpatient (CLI) | payer BC, SELFPAY ==
[2024-01-02 09:19] LABS: Anion Gap 7.6 mmol/L (3-11); BUN 14 mg/dL (7-18); CO2 31.4 mmol/L (21.0-32.0); CREATININE 0.7 mg/dL (0.55-1.02); Calcium 8.9 mg/dL (8.5-10.1); Calculated LDL 123 mg/dL (<100); Chloride 104 mmol/L (98-107); Cholesterol 207 mg/dL (<200); Estimated GFR 106.62 (mL/min/1.73m2); Glucose 99 mg/dL (74-106); HDL Cholesterol 62 mg/dL (40-60); Potassium 4.1 mmol/L (3.5-5.1); Sodium 143 mmol/L (136-145); Triglyceride 110 mg/dL (<150)
== END 2024-01-02 04:44 | disposition home or self-care (01) ==
LOC: LBO 04:43
PROVIDERS: Absent Provider Nurse Practitioner Adult Health; PCP Nurse Practitioner Adult Health; Visit Provider Nurse Practitioner Adult Health
DX: E78.5 Hyperlipidemia, unspecified (principal); I10 Essential (primary) hypertension
CPT/HCPCS: 36415; 80048; 80061

== ENCOUNTER 2025-03-17 15:58 | Outpatient (CLI) | payer BC, SELFPAY ==
[2025-03-17 08:07] LABS: Anion Gap 8.6 mmol/L (3-11); BUN 15 mg/dL (7-18); CO2 29.4 mmol/L (21.0-32.0); Calcium 9.1 mg/dL (8.5-10.1); Calculated LDL 124 mg/dL (<100); Chloride 101 mmol/L (98-107); Cholesterol 196 mg/dL (<200); Estimated GFR 105.95 (mL/min/1.73m2); Glucose 99 mg/dL (74-106); HDL Cholesterol 57 mg/dL (>or=50); Potassium 3.7 mmol/L (3.5-5.1); Sodium 139 mmol/L (136-145); Triglyceride 78 mg/dL (<150)
== END 2025-03-17 15:59 | disposition home or self-care (01) ==
LOC: LBO 15:58
PROVIDERS: PCP Nurse Practitioner Adult Health; Referring Provider Nurse Practitioner Adult Health; Visit Provider Nurse Practitioner Adult Health
DX: I10 Essential (primary) hypertension (principal); E78.5 Hyperlipidemia, unspecified
CPT/HCPCS: 36415; 80048; 80061